=== PATIENT | male | born 1990 | race Caucasian/White ===

== ENCOUNTER 2019-12-02 03:52 | Emergency (ER) | payer SELFPAY ==
[~2019-12-02] VITALS: Ht 185.4 cm; Wt 81.6 kg
[2019-12-02 03:57] VITALS: BP 135/89
--- NOTE | 2019-12-02 04:15 | NUR ---
PT REFUSE TO BE SEEN BY ER MD. PT STATES "I FEEL BETTER NOW, EARLIER I WAS VERY ANXIOUS BUT NOW I FEEL GOOD".
== END 2019-12-02 04:44 | disposition left against medical advice (07) ==
LOC: ER 03:55
DX: F41.9 Anxiety disorder, unspecified (principal); Z53.21 Procedure and treatment not carried out due to patient leaving prior to being seen by health care provider